=== PATIENT | female | born 1980 | race Caucasian/White ===

== ENCOUNTER 2016-09-17 09:38 | Day surgery (SDC) | payer BC ==
[2016-09-11 10:06] VITALS: BMI 42.1
[2016-09-17] VITALS (10 sets, daily range): BP systolic 111–163; BP diastolic 66–72; PULSE 68–103; RESP 13–20; Ht 167.6 cm; Wt 117.9 kg
[~2016-09-17] VITALS: Ht 167.6 cm; Wt 117.9 kg
[~2016-09-17 09:38] MED LIST: CEFAZOLIN 2 GM/50 ML (PMX) 50 ML IVPB SCH; GLIM4TAB PO; LEVO137T3 PO; METF1000 PO; SIMV40TA7 PO; SOD CHLORIDE 0.9% 1,000 ML IV SCH
[2016-09-17] MEDS ORDERED: CLINDAMYCIN 600 MG/D5W (PMX) 50 ML IVPB ONE (12:00)
[2016-09-17] MEDS ORDERED: LANT3I SC (12:06)
[2016-09-17] MEDS ORDERED: SITA100T8 PO (12:06)
[2016-09-17] MEDS ORDERED: CLINDAMYCIN 600 MG/D5W (PMX) 50 ML IVPB SCH (12:30)
[2016-09-17] MEDS ORDERED: BUPIVACAINE 0.25% (MPF) 30 ML INJ ONE (12:43)
[2016-09-17] MEDS ORDERED: BUPIVACAINE 0.5% (SDV) 30 ML INJ ONE (12:43)
[2016-09-17] MEDS ORDERED: LIDOCAINE 2% (MDV) 20 ML INJ ONE (12:43)
[2016-09-17] MEDS ORDERED: MEPERIDINE 100 MG INJ ONE (12:47)
[2016-09-17] MEDS ORDERED: PROPOFOL 20 ML ONE (12:47)
[2016-09-17] MEDS ORDERED: LIDOCAINE 2% (SDV) 5 ML INJ ONE (12:47)
[2016-09-17] MEDS ORDERED: METOCLOPRAMIDE 10 MG INJ ONE (12:49)
[2016-09-17] MEDS ORDERED: ONDANSETRON 4 MG INJ ONE (12:49)
[2016-09-17] MEDS ORDERED: MEPERIDINE 25 MG INJ IV PRN (13:30)
[2016-09-17] MEDS ORDERED: LABETALOL HCL 20MG INJ IV PRN (13:30)
[2016-09-17] MEDS ORDERED: MIDAZOLAM 1 MG/ML 2 ML INJ IV PRN (13:30)
[2016-09-17] MEDS ORDERED: hydrALAzine 20 MG INJ IV PRN (13:30)
[2016-09-17] MEDS ORDERED: DIPHENHYDRAMINE 50 MG INJ IV PRN (13:30)
[2016-09-17] MEDS ORDERED: morphine (1 MG/ML) 10ML SYRINGE IV PRN ×2 (13:30)
[2016-09-17] MEDS ORDERED: FENTAnyl 50 MCG/ML VIAL IV PRN ×2 (13:30)
[2016-09-17] MEDS ORDERED: METOCLOPRAMIDE 10 MG INJ IV PRN (13:30)
[2016-09-17] MEDS ORDERED: EPHEDrine SULFATE 50 MG/5 ML SYG IV PRN (13:30)
[2016-09-17] MEDS ORDERED: ONDANSETRON 4 MG INJ IV PRN (13:30)
--- NOTE | 2016-09-17 13:52 | OPR ---
DATE OF OPERATION: 09/17/2016 INDICATION: This is a 35-year-old female with left breast tumor. She requests surgical excision. Risks, alternatives, benefits, and personnel were discussed with the patient. Patient expressed und erstanding and consents to the operation. PREOPERATIVE DIAGNOSIS: Left breast tumor. POSTOPERATIVE DIAGNOSIS: Left breast tumor. OPERATION PERFORMED: 1. Left breast tumor excision with 6 cm size incision and 6 x 4 cm size mass. 2. Localized adjacent tissue transfer with the use of skin flaps. SURGEON: Nora Singer MD SPECIMEN: Left breast tumor. COMPLICATIONS: None. ANESTHESIA: General. PROCEDURE: The patient was taken to the OR, prepped and draped in the usual sterile fashion. Surgi nigel timeout was performed. IV antibiotics were given. Radiographic imaging was reviewed. A curvil inear incision was made superior to the left breast areola with a 15 blade. Dissection cautery was carried down to the mass. Using cautery circumferentially the mass was excised with a small margin of healthy tissue. The needle and mass are excised en bloc. Due to the large tissue defect localiz ed adjacent tissue transfer with the use of skin flaps was performed. Multilayer closure with inte rrupted 3-0 Vicryl and running 4-0 Monocryl. Local anesthesia was injected. Dry dressings were franchesca lied. Dictated By: NORA QUEZADA/MARCO A Conf#: [id number] DID#: [id number]
[2016-09-17] MEDS ORDERED: HYDROCODONE/APAP (5/325) TAB PO ONE (14:00)
== END 2016-09-17 15:39 | disposition home or self-care (01) ==
LOC: SDS 09:38
PROVIDERS: ATTEND Surgery
DX: D24.2 Benign neoplasm of left breast (principal); E03.9 Hypothyroidism, unspecified; E11.9 Type 2 diabetes mellitus without complications; E78.5 Hyperlipidemia, unspecified; E66.01 Morbid (severe) obesity due to excess calories; Z68.41 Body mass index [BMI] 40.0-44.9, adult
CPT/HCPCS: 19120; 82962; 84703; 88307; J2175; J2405; J2765; Z7512; Z7610